=== PATIENT | male | born 1945 | race Caucasian/White ===

== ENCOUNTER 2023-08-03 10:00 | Emergency (ER) | payer MEDICARE ==
[2023-08-03] MEDS ORDERED: Aspirin 81 MG Tab.Chew ONE (10:09)
[2023-08-03] MEDS ORDERED: Aspirin 81 MG Tab.Chew PO ONE (10:10)
[2023-08-03] MEDS: Sodium Chloride 0.9% 10 ML Syringe FLUSH PRN ×2 (10:15→10:36)
[2023-08-03] MEDS: Nitroglycerin 0.4 MG Tab.SL SL PRN ×3 (10:22→11:02)
[2023-08-03 10:31] LABS: BASOPHILS ABSOLUTE AUTO 0.03 10^3/uL (0.00-0.10); BASOPHILS PERCENT AUTO 0.5 % (0.0-1.0); EOSINOPHILS ABSOLUTE AUTO 0.06 10^3/uL (0.10-0.30); HEMATOCRIT 43.7 % (40.0-52.0); HEMOGLOBIN 14.6 g/dL (13.0-17.0); IMMATURE GRAN ABSOLUTE AUTO 0.04 10^3/uL (0.00-0.50); IMMATURE GRAN PERCENT AUTO 0.6 % (0.0-5.0); LYMPHOCYTES ABSOLUTE AUTO 0.89 10^3/uL (1.00-4.00); LYMPHOCYTES PERCENT AUTO 14.3 % (20.0-40.0); MEAN CORPUSCULAR HEMOGLOBIN 30.7 pg (27.0-31.0); MEAN CORPUSCULAR HGB CONC 33.4 g/dL (32.0-36.0); MEAN PLATELET VOLUME 9.4 fL (7.4-10.4); MONOCYTES ABSOLUTE AUTO 0.47 10^3/uL (0.10-0.80); MONOCYTES PERCENT AUTO 7.6 % (2.0-8.0); NEUTROPHILS ABSOLUTE AUTO 4.73 10^3/uL (2.50-7.00); PLATELET COUNT,PLT 159 10^3/uL (150-400); RED BLOOD CELL COUNT 4.75 10^6/uL (4.50-6.00); WHITE BLOOD CELL COUNT,WBC 6.22 10^3/uL (5.00-10.00)
[2023-08-03] MEDS ORDERED: Morphine 2 MG/ML SYRINGE ONE (10:35)
[2023-08-03 10:38] LABS: ALBUMIN 3.62 g/dL (3.40-5.00); ANION GAP 14.7 mmol/L (5-15); BILIRUBIN TOTAL 0.2 mg/dL (0.2-1.0); CALCIUM 8.5 mg/dL (8.7-10.3); CARBON DIOXIDE,CO2 24.7 mmol/L (21.0-32.0); CREATININE 0.89 mg/dL (0.51-1.17); EST CRCL DRUG DOSING (CG) 68.41 mL/min; POTASSIUM,K 4.4 mmol/L (3.5-5.1)
[2023-08-03] MEDS ORDERED: Sodium Chloride 0.9% 500 ML ONE (10:40)
[2023-08-03] MEDS ORDERED: Morphine 2 MG/ML SYRINGE IVPUSH ONE (10:42)
[2023-08-03] MEDS ORDERED: Sodium Chloride 0.9% 250 ML IV ONE (10:42)
[2023-08-03] MEDS ORDERED: Sodium Chloride 0.9% 500 ML IV SCH (10:42)
[2023-08-03] MEDS ORDERED: Acetaminophen 500 MG Tab PO PRN (12:24)
[2023-08-03] MEDS ORDERED: Heparin Sodium 5,000 Units/ML Vial IVPUSH ONE (12:39)
[2023-08-03] MEDS ORDERED: Heparin Sodium/D5W 250 ML IV SCH (12:45)
[2023-08-03 12:48] LABS: PROTHROMBIN TIME 9.9 SEC (9.2-11.2); PTT,PARTIAL THROMBOPLSTIN TIME 22.3 SEC (22.8-31.4)
[2023-08-03] MEDS: Heparin Sodium/D5W 250 ML IV SCH ×2 (12:57→13:10)
== END 2023-08-03 14:11 ==
LOC: KA.ED 10:00
DX: I21.4 Non-ST elevation (NSTEMI) myocardial infarction (principal); R51.9 Headache, unspecified; S09.90XA Unspecified injury of head, initial encounter; Z79.84 Long term (current) use of oral hypoglycemic drugs; Z79.82 Long term (current) use of aspirin; Z79.899 Other long term (current) drug therapy; Z20.822 Contact with and (suspected) exposure to COVID-19; W22.8XXA Striking against or struck by other objects, initial encounter
CPT/HCPCS: 36415; 70450; 71045; 80053; 83880; 84484; 85025; 85379; 85610; 85730; 93010; 96361; 96365; 96375; 96376; 99284; 99285; A9270; J1644; J2270; J7040; U0002; J3490